=== PATIENT | male | born 1965 | race Two or more races ===

== ENCOUNTER 2024-09-18 16:43 | Emergency (ER) | payer OTHER, MEDICAID ==
[~2024-09-18] VITALS: Ht 182.9 cm; Wt 113.4 kg
[2024-09-18 17:01] VITALS: TEMP 98.2
[2024-09-18] MEDS ORDERED: ACETAMINOPHEN ES 500 MG TABLET ONE (17:40)
[2024-09-18] MEDS: ACETAMINOPHEN ES 500 MG TABLET PO ONE (17:43)
[2024-09-18 20:10] VITALS: BP 110/75; O2SAT 98
== END 2024-09-18 20:10 | disposition home or self-care (01) ==
LOC: ER 16:52
DX: S06.9X9A Unspecified intracranial injury with loss of consciousness of unspecified duration, initial encounter (principal); S40.012A Contusion of left shoulder, initial encounter; S09.8XXA Other specified injuries of head, initial encounter; I10 Essential (primary) hypertension; Z88.6 Allergy status to analgesic agent; V49.09XA Driver injured in collision with other motor vehicles in nontraffic accident, initial encounter; Y93.89 Activity, other specified; Y92.415 Exit ramp or entrance ramp of street or highway as the place of occurrence of the external cause; Y99.8 Other external cause status
CPT/HCPCS: 70450-TC; 71045-TC; 73030-TC